=== PATIENT | female | born 1985 ===

== ENCOUNTER 2016-04-19 11:24 | Emergency (ER) | payer OTHER ==
[2016-04-19 11:32] VITALS: BP 106/58
--- NOTE | 2016-04-19 11:59 | UC ---
UC General HPI - HPI Summary HPI Summary: Patient had lice and needed to be check to make sure it was clear. - History of Current Complaint Chief Complaint: HAFSAkin Stated Complaint: SKIN COMPLAINT Time Seen by Provider: 04/19/16 11:54 Hx Obtained From: Patient Onset/Duration: Sudden Onset, Lasting Days Timing: Constant Onset Severity: Mild Current Severity: Mild Pain Intensity: 0 - Allergy/Home Medications Allergies/Adverse Reactions: Allergies Allergy/AdvReac Type Severity Reaction Status Date / Time No Known Allergies Allergy Verified 04/19/16 11:32 Home Medications: Home Medications Buprenorphine/Naloxone SL TAB* [Suboxone 8-2 mg SL TAB*] 2 tab SL DAILY [History Confirmed 04/19/16] PMH/Surg Hx/FS Hx/Imm Hx Previously Healthy: Yes - Surgical History Surgical History: None - Family History Known Family History: Positive: Other - drug abuse - Social History Alcohol Use: Occasionally Substance Use Type: Cocaine, Heroin Smoking Status (MU): Heavy Every Day Tobacco Smoker Review of Systems Constitutional: Negative Skin: Negative Eyes: Negative ENT: Negative Respiratory: Negative Cardiovascular: Negative Gastrointestinal: Negative Genitourinary: Negative Motor: Negative Neurovascular: Negative Musculoskeletal: Negative Neurological: Negative Psychological: Negative All Other Systems Reviewed And Are Negative: Yes Physical Exam Triage Information Reviewed: Yes Appearance: Well-Appearing, No Pain Distress, Well-Nourished Vital Signs: Initial Vital Signs Temp 98.0 F 04/19/16 11:29 Pulse 80 04/19/16 11:29 Resp 14 04/19/16 11:29 BP 106/58 04/19/16 11:29 Pulse Ox 100 04/19/16 11:29 Vital Signs Reviewed: Yes Eye Exam: Normal Eyes: Positive: Conjunctiva Clear ENT Exam: Normal ENT: Positive: Normal ENT inspection, Pharyngeal erythema, TMs normal Dental Exam: Normal Neck exam: Normal Neck: Positive: Supple, Nontender, No Lymphadenopathy Respiratory Exam: Normal Respiratory: Positive: Chest non-tender, Lungs clear, Normal breath sounds Cardiovascular Exam: Normal Cardiovascular: Positive: RRR, No Murmur, Pulses Normal Abdominal Exam: Normal Abdomen Description: Positive: Nontender, No Organomegaly, Soft Bowel Sounds: Positive: Present Musculoskeletal Exam: Normal Musculoskeletal: Positive: Strength Intact, ROM Intact, No Edema Neurological Exam: Normal Neurological: Positive: Alert, Muscle Tone Normal Psychological Exam: Normal Skin: Positive: Other - no lice or nits noted on scalp or hair Course/Dx - Course Course Of Treatment: hx obtained exam performed, note given for clearance. educated on prevention of lice - Differential Dx - Multi-Symptom Provider Diagnoses: lice, recheck Discharge - Discharge Plan Condition: Stable Disposition: HOME Patient Education Materials: Head Lice in Children (GEN) Forms: *Work Release
== END 2016-04-19 12:02 | disposition home or self-care (01) ==
LOC: UCCORT 11:24
DX: Z09 Encounter for follow-up examination after completed treatment for conditions other than malignant neoplasm (principal); Z87.2 Personal history of diseases of the skin and subcutaneous tissue; F17.200 Nicotine dependence, unspecified, uncomplicated
CPT/HCPCS: 99201; G0463

== ENCOUNTER 2016-05-07 11:24 | Emergency (ER) | payer OTHER ==
[2016-05-07 11:55] VITALS: BP 115/73
--- NOTE | 2016-05-07 12:05 | UC ---
Skin Complaint HPI - HPI Summary HPI Summary: The patient comes in today for: 1. Check for head lice: Onset: About one month ago. Palliative/provocative: Nothing makes her symptoms better or worse--she is symptom free. Quality: No itching at this time. Region: Head Severity: 0/10 Time: Symptoms were constant before--not now. Associated symptoms: Event: The patient states that she is here only to have her head checked for head lice. She had head lice about a month ago. She was used "the lice shampoo." She was seen here three weeks ago and then found to be head lice free. She has not had any other symptoms. She goes to [facility] and needs another note saying that she is free of head lice. * - History of Current Complaint Chief Complaint: UCSkin Time Seen by Provider: 05/07/16 11:56 Stated Complaint: HEAD LICE Hx Obtained From: Patient Hx Last Menstrual Period: 04/06/16 ?: No - Allergy/Home Medications Allergies/Adverse Reactions: Allergies Allergy/AdvReac Type Severity Reaction Status Date / Time No Known Allergies Allergy Verified 05/07/16 11:55 Review of Systems Constitutional: Negative Skin: Negative Eyes: Negative ENT: Negative Respiratory: Negative Cardiovascular: Negative Gastrointestinal: Negative Genitourinary: Negative All Other Systems Reviewed And Are Negative: Yes PMH/Surg Hx/FS Hx/Imm Hx Previously Healthy: Yes - Chemical dependency (opioid) Endocrine History Of: Denies: Diabetes, Thyroid Disease, Hyperthyroidism, Hypothyroidism, Dyslipidemia Cardiovascular History Of: Denies: Cardiac Disorders, Hypertension, Pacemaker/ICD, Myocardial Infarction , Congestive Heart Failure, Atrial Fibrillation, Deep Vein Thrombosis, Bleeding Disorders Respiratory History Of: Denies: COPD, Asthma, Bronchitis, Pneumonia, Pulmonary Embolism GI/ History Of: Denies: Gastroesophageal Reflux, Ulcer, Gastrointestinal Bleed, Gall Bladder Disease, Kidney Stones, Diverticulitis, Renal Disease, Urosepsis Neurological History Of: Denies: TIA, CVA, Dementia, Seizures, Migraine Psychological History Of: Reports: Anxiety - On no medications., Depression Denies: Bipolar Disorder, Schizophrenia, Post Traumatic Stress Disorder Cancer History Of: Denies: Lung Cancer, Colorectal Cancer, Breast Cancer, Prostate Cancer, Cervical Cancer Other History Of: Negative For: HIV, Hepatitis B, Hepatitis C, Anticoagulant Therapy - Surgical History Surgical History: None - Family History Known Family History: Positive: Other - drug abuse Negative: Cardiac Disease, Hypertension - Social History Occupation: Unemployed Alcohol Use: Occasionally Substance Use Type: Cocaine, Heroin Substance Use Comment - Amount & Last Used: has been clean for last month Smoking Status (MU): Heavy Every Day Tobacco Smoker Type: Cigarettes Amount Used/How Often: 1/2 ppd Length of Time of Smoking/Using Tobacco: since age 17 Have You Smoked in the Last Year: Yes Physical Exam Triage Information Reviewed: Yes Appearance: Well-Appearing, No Pain Distress, Well-Nourished Vital Signs: Initial Vital Signs Temp 98.6 F 05/07/16 11:50 Pulse 69 05/07/16 11:50 Resp 16 05/07/16 11:50 BP 115/73 05/07/16 11:50 Pulse Ox 100 05/07/16 11:50 Vital Signs Reviewed: Yes Eyes: Positive: Conjunctiva Clear. Negative: Discharge ENT: Positive: Hearing grossly normal. Negative: Pharyngeal erythema, Nasal congestion, Nasal drainage, TM bulging, TM dull, TM red, Tonsillar swelling, Tonsillar exudate Dental: Negative: Gross Decay/Caries @, Dental Fracture @ Neck: Positive: Supple, Nontender, No Lymphadenopathy. Negative: Nuchal Rigidity Respiratory: Positive: Lungs clear, No respiratory distress, No accessory muscle use. Negative: Crackles, Wheezing Cardiovascular: Positive: RRR, No Murmur Abdomen Description: Positive: Nontender, No Organomegaly, Soft. Negative: Distended, Guarding Musculoskeletal: Positive: Strength Intact, ROM Intact Neurological: Positive: Alert, Muscle Tone Normal Psychological: Positive: Normal Response To Family, Age Appropriate Behavior, Consolable Skin: Negative: rashes, breakdown Course/Dx - Differential Diagnoses - Skin Complaint Differential Diagnoses: Contact Dermatitis, Urticaria - Diagnoses Provider Diagnoses: Head lice. Discharge - Discharge Plan Condition: Stable Disposition: HOME Patient Education Materials: Head Lice in Children (GEN) Forms: *School Release Referrals: [facility] [Primary Care Provider] - If Needed
== END 2016-05-07 12:32 | disposition home or self-care (01) ==
LOC: UCCORT 11:24
DX: B85.0 Pediculosis due to Pediculus humanus capitis (principal); F17.210 Nicotine dependence, cigarettes, uncomplicated
CPT/HCPCS: 99211; G0463

== ENCOUNTER 2018-11-05 14:10 | Emergency (ER) | payer OTHER ==
[2018-11-05 15:21] VITALS: BP 111/67
--- NOTE | 2018-11-05 15:39 | UC ---
Complaint Female HPI - HPI Summary HPI Summary: per judge: "complaints of left flank pain with dysuria for past 2 days."- currently has her period. denies . -felt liek she was burning up earlier but AC helped. she was at work and left early. tried to take a nap wiith no relief dysuri started eysterday. she is concerned about a kidney infection. -she takes suboxone. -denies radiation to front -decr appetite - no h/o kidney stones. -took APAP ~ 11 AM when she got home from work. - History Of Current Complaint Chief Complaint: UCGU Stated Complaint: LOW BACK PAIN Time Seen by Provider: 11/05/18 15:28 Hx Last Menstrual Period: 11/04/18 Pain Intensity: 8 - Allergies/Home Medications Allergies/Adverse Reactions: Allergies Allergy/AdvReac Type Severity Reaction Status Date / Time No Known Allergies Allergy Verified 11/05/18 15:21 PMH/Surg Hx/FS Hx/Imm Hx Previously Healthy: Yes Other History Of: Negative For: HIV, Hepatitis B, Hepatitis C, Anticoagulant Therapy - Surgical History Surgical History: None - Family History Known Family History: Positive: Other - drug abuse Negative: Cardiac Disease, Hypertension - Social History Alcohol Use: Occasionally Substance Use Type: Cocaine, Heroin Substance Use Comment - Amount & Last Used: clean for 3 years Smoking Status (MU): Heavy Every Day Tobacco Smoker Type: Cigarettes Amount Used/How Often: 1/2 ppd Length of Time of Smoking/Using Tobacco: since age 17 Have You Smoked in the Last Year: Yes Review of Systems All Other Systems Reviewed And Are Negative: Yes Constitutional: Positive: Fever, Chills, Fatigue Skin: Positive: Negative Eyes: Positive: Negative ENT: Positive: Negative Respiratory: Positive: Negative. Negative: Shortness Of Breath, Cough Cardiovascular: Positive: Negative. Negative: Palpitations, Chest Pain Gastrointestinal: Negative: Abdominal Pain, Vomiting, Diarrhea, Nausea Genitourinary: Positive: Dysuria, Hematuria - has menses (nml), Urgency. Negative: Vaginal/Penile Burning Motor: Positive: Negative Neurovascular: Positive: Negative Musculoskeletal: Positive: Myalgia Neurological: Positive: Negative Psychological: Positive: Negative Is Patient Immunocompromised?: No Physical Exam Triage Information Reviewed: Yes Appearance: Well-Nourished, Ill-Appearing, Pain Distress Vital Signs: Initial Vital Signs Temp 99.2 F 11/05/18 15:17 Pulse 108 11/05/18 15:17 Resp 18 11/05/18 15:17 BP 111/67 11/05/18 15:17 Pulse Ox 97 11/05/18 15:17 Eye Exam: Normal ENT Exam: Normal ENT: Positive: Pharynx normal, Uvula midline, Other - mmm Neck exam: Normal Neck: Positive: Supple, Nontender, No Lymphadenopathy Respiratory Exam: Normal Respiratory: Positive: Chest non-tender, Lungs clear, Normal breath sounds, No respiratory distress, No accessory muscle use. Negative: Crackles, Rhonchi, Stridor, Wheezing Cardiovascular Exam: Normal Cardiovascular: Positive: RRR, No Murmur, Pulses Normal, Brisk Capillary Refill Abdomen Description: Positive: Soft, CVA Tenderness (L), Other: - + LLQ tenderness. Negative: Distended, Guarding, Peritoneal Signs, Pulsatile Mass, Splenomegaly Musculoskeletal Exam: Normal Neurological Exam: Normal Psychological Exam: Normal Skin Exam: Normal Skin: Negative: Rashes Complaint Female Dx - Course Course Of Treatment: Left flank pain & LLQ tenderness. UA + 3 LE, + 2 ketones, + nitrites, + 3 LE, + 3 blood (has menses too) ? pylenopheritis vs kidney stone vs abdominal pathology -CT NA here today. unable to get STAT labs -recommend ER for further evaluation. she is very agreeable -s/w [facility] who accepts pt. -she vprefers to drive on her own. she understands to go directly to ER. - Differential Dx/Diagnosis Differential Diagnosis/HQI/PQRI: Pelvic Inflammatory Disease, Urinary Tract Infection, Other - Pyelnephritis Provider Diagnosis: Dysuria, Left low back pain Discharge - Sign-Out/Discharge Documenting (check all that apply): Patient Departure All imaging exams completed and their final reports reviewed: No Studies - Discharge Plan Condition: Fair Disposition: TRANS HIGHER LVL OF CARE FAC Referrals: No Primary Care Phys,NOPCP [Primary Care Provider] - Additional Instructions: Please make sure to go directly to the ER for further evaluation. - Billing Disposition and Condition Condition: FAIR Disposition: Trans Higher Lvl of Care Fac
== END 2018-11-05 16:00 | disposition short-term general hospital (02) ==
LOC: UCCORT 14:10
DX: R30.0 Dysuria (principal); M54.5 Low back pain; F17.210 Nicotine dependence, cigarettes, uncomplicated
CPT/HCPCS: 81003; 87077; 87086; 87186; 99212; G0463